=== PATIENT | female | born 1980 | race Caucasian/White ===

== ENCOUNTER 2018-05-18 11:45 | Outpatient (REF) | payer SELFPAY ==
--- NOTE | 2018-05-18 08:55 | PAPFT_PTH ---
PATIENT: DOMI TRAYLOR LOC: [facility]#:[id number] AGE/SX: 38/F ROOM: RE05/18/[address]: Erika Wang : 1980 BED: DIS: 05/18/2018 SPEC #: [id number] RECD: 05/19/18 13:15 STATUS: SELMA REChastity #: [id number] YULISA: 05/18/18 08:[address]: Erika Wang DEPT: [facility] Cytology RECD BY: Sarah Ramirez ENTERED: 05/19/18 13:15 SP TYPE: PAPFT OTHR DR: Marilee Jasso Tissues: 1 - CX/ENDOCX FOR PAP SMEARS Procedures: PAP THIN PREP/[facility] Screening HPV DNA PROBE Comments: [id number]
== END 2018-05-18 12:05 ==
LOC: NCHCN 11:45
PROVIDERS: PCP Nurse Practitioner Family; Visit Provider Nurse Practitioner Family
DX: Z12.4 Encounter for screening for malignant neoplasm of cervix (principal); Z11.51 Encounter for screening for human papillomavirus (HPV)
CPT/HCPCS: 88142; 87624

== ENCOUNTER 2019-08-29 13:53 | Outpatient (REF) | payer OTHER, SELFPAY ==
--- NOTE | 2019-08-29 13:30 | PAPFT_PTH ---
PATIENT: DOMI TRAYLOR LOC: [facility]#:[id number] AGE/SX: 39/F ROOM: RE08/29/[address]: Erika aWng : 1980 BED: DIS: 08/29/2019 SPEC #: [id number] RECD: 08/30/19 12:29 STATUS: SELMA REChastity #: [id number] YULISA: 08/29/19 13:[address]: Erika Wang [facility]PT[facility] Cytology RECD BY: Sarah Ramirez ENTERED: 08/30/19 12:29 SP TYPE: PAPFT OTHR DR: Marilee Jasso Tissues: 1 - CX/ENDOCX FOR PAP SMEARS Procedures: PAP THIN PREP/[facility] Screening HPV DNA PROBE Comments: [id number]
== END 2019-08-29 14:13 ==
LOC: NCHCN 13:53
PROVIDERS: PCP Nurse Practitioner Family; Visit Provider Nurse Practitioner Family
DX: Z00.00 Encounter for general adult medical examination without abnormal findings (principal); Z12.4 Encounter for screening for malignant neoplasm of cervix; Z11.51 Encounter for screening for human papillomavirus (HPV)
CPT/HCPCS: 88142; 87624